=== PATIENT | female | born 1995 | race Caucasian/White ===

== ENCOUNTER → 2016-09-17 12:52 | Outpatient (CLI) | payer BC ==
--- NOTE | ~2016-09-17 | EEG ---
PATIENT:SHABNAM AWAN DATE OF SERVICE: 09/17/16 MEDICAL RECORD: [id number] DATE OF : [birth year] LOCATION: [facility] ADMISSION DATE: 09/17/16 REFERRING PHYSICIAN: INTERPRETING PHYSICIAN: NETTA SOARES MD DATE OF SERVICE: 09/17/2016 Electroencephalographic Report Referred as an outpatient by myself. ELECTROENCEPHALOGRAM NUMBER: [id number]. DATE OF EXAMINATION: 09/17/16 at 2:00 p.m. TECHNICAL DATA: This electroencephalographic recording consisted of approximately 20 minutes of data collection utilizing the international 10/20 system of electrode placement and both referential and non-referential montages. Sixteen channels of electrocerebral recording are accompanied by a 17th channel dedicated to the electrocardiographic rhythm and 2 channels of electromyographic recording. Recording is performed in the awake and drowsy states utilizing activation by hyperventilation and photic stimulation. ELECTROENCEPHALOGRAPHIC DATA: The awake state comprises approximately 80% of the recorded electrocerebral activity. Electromyographic artifact is prominent and rapid eye movements are seen. The posterior dominant background consists of a well-developed, symmetric, rhythmic, waxing and waning alpha activity of 10-11 Hz, which is suppressed by eye opening. The drowsy state comprises the remaining portion of the recorded electrocerebral activity. Electromyographic artifact is diminished and rapid eye movements are not seen. The posterior dominant background is relatively suppressed. Also seen is an intermittent irregular generalized and symmetric 2-3 Hz delta slowing, which occurs for periods of 1-2 seconds approximately once every 1-2 pages. No abnormal nor focal slowing is identified. No epileptiform discharges are seen. Hyperventilation and photic stimulation induced no abnormal change in the recorded electrocerebral activity. INTERPRETATION: Normal (awake and drowsy). This is a normal electroencephalographic recording. TRANSINT:[id number] Voice Confirmation ID: [id number] DOCUMENT ID: [id number] ELECTROENCEPHALOGRAM REPORT [id number] SHABNAM AWAN NETTA SOARES MD CC: [id number] DICTATION DATE: 09/18/16 09 FIRE ENGINEER: 09/19/16 0120 DEP CLI 09/17/16 [id number] [place] [address]
[2016-09-17 16:41] LABS: T4 THYROXINE 7.7 ug/dL (4.7-13.3); THYROID STIMULATING HORMONE 1.66 uIU/mL (0.36-3.74)
[2016-09-17 17:06] LABS: ERYTHROCYTE SEDIMENTATION RATE 5 mm/hr (0-20)
[2016-09-18 07:25] LABS: RAPID PLASMA REAGIN Non Reactive (Non Reactive)
[2016-09-18 08:19] LABS: FOLATE (FOLIC ACID) - SERUM 15.2 ng/mL (>3.0)
== END | disposition home or self-care (01) ==
LOC: D.CN 12:52
PROVIDERS: Psychiatry & Neurology Neurology
DX: G43.711 Chronic migraine without aura, intractable, with status migrainosus (principal)